=== PATIENT | female | born 1990 | race Two or more races ===

== ENCOUNTER 2018-12-16 09:14 | Day surgery (SDC) | payer OTHER ==
[~2018-12-16] VITALS: Ht 165.1 cm; Wt 81.6 kg
[2018-12-16] VITALS (14 sets, daily range): BP systolic 93–126; BP diastolic 44–90
[~2018-12-16 09:14] MED LIST: ceFAZolin 1gm IVPB IVPB ONE; celeBREX 200mg Cap **SURGERY PATIENTS ONLY ORAL ONE; oxyCONTIN 20mg tab ORAL ONE
[2018-12-16] MEDS ORDERED: TYLENOL EXTRA500 MG ORAL (09:52)
[2018-12-16] MEDS ORDERED: IBUPROFEN600 MG ORAL (09:53)
[2018-12-16] MEDS ORDERED: oxyCONTIN 20mg tab ORAL ONE (13:56)
[2018-12-16] MEDS ORDERED: celeBREX 200mg Cap **SURGERY PATIENTS ONLY ORAL ONE (13:56)
[2018-12-16] MEDS ORDERED: fentaNYL 100 mcg/2 mL IV ONE (14:26)
[2018-12-16] MEDS ORDERED: Midazolam 2mg/2ml Inj ONE (14:26)
[2018-12-16] MEDS ORDERED: TransDerm Scop 1mg/72HR Patch TDERMAL ONE ×2 (14:32→17:00)
[2018-12-16] MEDS ORDERED: Zemuron 50mg/5ml Inj IV ONE (14:33)
[2018-12-16] MEDS ORDERED: Succinylcholine 20mg/ml 10ml vial ONE (14:33)
--- NOTE | 2018-12-16 14:33 | Pre-Procedure Note/Attestation ---
Pre-Procedure Note/Attestation Complete Prior to Procedure Planned Procedure: left Procedure Narrative: humerus orif Indications for Procedure Pre-Operative Diagnosis: left humerus fracture Attestation I attest that I discussed the nature of the procedure; its benefits; risks and complications; and alternatives (and the risks and benefits of such alternatives ), prior to the procedure, with the patient (or the patient's legal retail wireless sales representative). I attest that, if there was a reasonable possibility of needing a blood transfusion, the patient (or the patient's legal retail wireless sales representative) was given the [facility] standardized written summary, pursuant to the Maik Nick Blood Safety Act ([place] Health and Safety Code # 1645, as amended). I attest that I re-evaluated the patient just prior to the surgery and that there has been no change in the patient's H&P, except as documented below: Wang Becker MD Dec 16, 2018 14:33
--- NOTE | 2018-12-16 14:34 | Operative Note - PDOC ---
Operative Note Operative Note Pre-op Diagnosis: left humerus fracture Procedure: see op report Post-op Diagnosis: same as pre-op plus Operative Findings: consistent w/pre-op dx studies Anesthesia: general Specimen: none Complications: none Condition: stable Estimated Blood Loss: none Implant(s) used?: Yes Wang Becker MD Dec 16, 2018 14:34
[2018-12-16] MEDS ORDERED: Ropivacaine 5mg/ml Vial 30ml INJ ONE (14:42)
[2018-12-16] MEDS ORDERED: Bupivacaine w/Epi 0.5% 30ml Vial INJ ONE (14:42)
[2018-12-16] MEDS ORDERED: Bacitracin 50000 Units Vial ONE (14:43)
[2018-12-16] MEDS ORDERED: Tylenol #3 tab (300mg/30mg) ORAL PRN (14:45)
[2018-12-16] MEDS ORDERED: HYDROmorphone 1mg/ml Carpuject SUBQ PRN (14:45)
[2018-12-16] MEDS ORDERED: HYDROcodone/Acetamin 5/325 tab ORAL PRN (14:45)
[2018-12-16] MEDS ORDERED: D5 1/2NS 1,000 ML IV SCH (14:45)
[2018-12-16] MEDS ORDERED: LR 1000ml ONE (15:00)
[2018-12-16] MEDS ORDERED: Sterile Water Irrig 1000ml IRRIG ONE (15:00)
[2018-12-16] MEDS ORDERED: Propofol 200mg/20ml IV ONE (15:00)
[2018-12-16] MEDS ORDERED: Neostigmine 1mg/ml 10ml Inj ONE (15:00)
[2018-12-16] MEDS ORDERED: NS Irrig 1000ml ONE (15:00)
[2018-12-16] MEDS ORDERED: Tranexamic Acid 1,000 MG in NS 65 ML IV ONE (16:00)
--- NOTE | 2018-12-16 16:06 | Anethesia Preoperative Eval ---
Anesthesia Pre-op PMH/ROS General Date of Evaluation: Dec 16, 2018 Time of Evaluation: 14:10 Anesthesiologist: Navin ASA Score: ASA 2 Mallampati Score Class I : Soft palate, uvula, fauces, pillars visible Class II: Soft palate, uvula, fauces visible Class III: Soft palate, base of uvula visible Class IV: Only hard plate visible Mallampati Classification: Class II Surgeon: Eugenio Diagnosis: L distal humerus Fx Surgical Procedure: ORIF of L distal humerus Fx Anesthesia History: none Family History: no anesthesia problems Allergies: Coded Allergies: No Known Allergies (Unverified , 12/16/18) Medications: see eMAR Patient NPO?: Yes Past Medical History Cardiovascular: Denies: HTN, CAD, [place], valve dz, arrhythmia, other Pulmonary: Denies: asthma, COPD, ERUM, other Gastrointestinal/Genitourinary: Reports: GERD - mild; Denies: CRI, ESRD, other Neurologic/Psychiatric: Denies: dementia, CVA, depression/anxiety, TIA, other Endocrine: Denies: DM, hypothyroidism, steroids, other HEENT: Denies: cataract (L), cataract (R), glaucoma, [place] (L), [place] (R), other Hematology/Immune: Reports: anemia - mild; Denies: DVT, bleeding disorder, other Musculoskeletal/Integumentary: Denies: OA, RA, DJD, DDD, edema, other PMH Narrative: as above PSxH Narrative: None Anesthesia Pre-op Phys. Exam Physician Exam Last Vital Signs Date Time Temp Pulse Resp B/P (MAP) Pulse Ox O2 Delivery O2 Flow Rate FiO2 12/16/18 09:55 Room Air 12/16/18 09:54 97.6 76 18 126/90 98 Constitutional: NAD Neurologic: CN 2-12 intact Cardiovascular: RRR, no M/R/G Respiratory: CTA Gastrointestinal: S/NT/ND Airway Exam Mallampati Score: Class II MO: full Neck: Flexible ROM: full Teeth: intact Dentures: no upper, no lower Anesthesia Pre-op A/P Labs see chart Urine Test Test 12/16/18 09:30 Urine HCG, Qualitative Negative (NEGATIVE) Studies Pre-op Studies: EKG - NSR Risk Assessment & Plan Assessment: ASA 2 Plan: GA with ETT prone position PONV prevention, L brachial plexus block for post op pain control Status Change Before Surgery: No Pre-Antibiotics Drug: Ancef 2gr. Given Within 1 Hr of Incision: Yes Time Given: 15:25 Hadley Holden MD Dec 16, 2018 16:06
[2018-12-16] MEDS ORDERED: LR 1000ml 1,000 ML IVLG SCH (16:07)
[2018-12-16] MEDS ORDERED: Morphine Sulfate 10mg/ml Inj ONE (16:09)
[2018-12-16] MEDS ORDERED: DiphenhydrAMINE 50mg/ml Inj IVP PRN (16:15)
[2018-12-16] MEDS ORDERED: Glycopyrrolate 0.2mg/ml 1ml Vial ONE (16:15)
[2018-12-16] MEDS ORDERED: Midazolam 2mg/2ml Inj IVP PRN (16:15)
[2018-12-16] MEDS ORDERED: Acetaminophen (Non formulary) 100 ML IV ONE (16:15)
[2018-12-16] MEDS ORDERED: Ketorolac 30mg Inj IV PRN (16:15)
[2018-12-16] MEDS ORDERED: Metoclopramide 10mg/2ml Inj IVP PRN (16:15)
[2018-12-16] MEDS ORDERED: Hydromorphone 0.5mg/0.5ml inj IVP PRN (16:15)
[2018-12-16] MEDS ORDERED: Metoprolol 5mg/5ml Inj ONE (16:36)
[2018-12-16] MEDS ORDERED: Hydrogen Peroxide 473ml Bottle TOPIC ONE (18:23)
--- NOTE | 2018-12-16 19:13 | Immediate Post-Op Evaluation ---
Immediate Post-Op Evalulation Immediate Post-Op Evalulation Procedure: ORIF of L humerus Fx Date of Evaluation: Dec 16, 2018 Time of Evaluation: 19:12 IV Fluids: 1200 Blood Products: none Estimated Blood Loss: 100 Urinary Output: 150 Blood Pressure Systolic: 96 Blood Pressure Diastolic: 48 Pulse Rate: 92 Respiratory Rate: 22 O2 Sat by Pulse Oximetry: 99 Temperature (Fahrenheit): 97.8 Pain Score (1-10): 2 Nausea: No Vomiting: No Complications none Patient Status: reacts, patent, extubated, none Hydration Status: adequate Hadley Holden MD Dec 16, 2018 19:13
--- NOTE | 2018-12-19 09:27 | Diagnostic Imaging Report ---
INDICATION: Pain, intraoperative TECHNIQUE: Intraoperative imaging Fluoroscopy time: 25.4 seconds Total dose: 0.2422 mGym2 Total number of images: 4 COMPARISON: None FINDINGS: Intraoperative images document surgical repair of spiral distal humeral fracture with lateral plate and screws IMPRESSION: Intraoperative imaging, as described
--- NOTE | 2018-12-19 09:30 | Operative Note - Dictated ---
DATE OF OPERATION: 12/16/2018 PREOPERATIVE DIAGNOSES: 1. Left distal third spiral fracture. 2. Left radial nerve palsy. POSTOPERATIVE DIAGNOSES: 1. Left distal third spiral fracture. 2. Left radial nerve palsy. PROCEDURES: 1. Open reduction and internal fixation of the left distal humeral shaft fracture. 2. Radial nerve neurolysis. SURGEON: Wang Becker M.D. ANESTHESIA: Interscalene with general. INDICATION FOR PROCEDURE: The patient is a pleasant female who sustained the injury to her left arm. She also had a secondary nerve palsy. She was indicative of operative fixation. Risks, limitations, expectations, and complications of the procedure were discussed in detail. All questions were addressed. DESCRIPTION OF PROCEDURE: After informed consent was obtained, the patient was brought to the operating room. The patient was placed under general anesthesia. The patient was then placed in the prone position. We padded all the extremities. The left arm was prepped and draped in a sterile manner. A posterior skin incision was then marked out. The skin was incised. Subcutaneous fascial layers were recreated along the lateral interseptum. The radial nerve was identified. This was then followed posteriorly until we entered the triceps. At this point, the lateral window along the triceps was made. The fracture had a spiral component, but two primarily fragments. Of note, the proximal part of the fracture fragment was engaged inside the radial nerve. The radial nerve was intact in its entirety however. Care was taken to reduce the fracture. Two interfrag screws were placed. The posterior lateral plate was then placed and secured. Once that was done, AP and lateral imaging were obtained. During the lateral rotation, there was displacement of the fracture. Therefore, the distal locking screws were all removed. The fracture was then reduced, and at this point, again screw fixation distally was placed. Additional fixation was placed. There were many holes as possible, and given the rotation, there may be issues with stability. At that point, there was still some gapping on the fracture site. Therefore, DBM bone matrix was then placed into this area. Of note, the radial nerves over the empty holes at 5, 6, and 7 . At this point, the lateral triceps fascia was approximated with #1 Vicryl suture. Subcutaneous tissue was approximated with #1 and 0 Vicryl suture and 2-0 Vicryl suture. Steri-Strips and a sterile dressing were applied. The patient was awoken and taken to recovery with stable vital signs. ESTIMATED BLOOD LOSS: 100 mL. COMPLICATIONS: None. SPECIMENS: None. IMPLANT: Include [place], distal anterior lateral plate. Wang Becker M.D. DR: Rosalind JOB#: [id number] CC: YOVANI
== END 2018-12-16 22:30 | disposition home or self-care (01) ==
LOC: SUR 09:14
DX: S42.402A Unspecified fracture of lower end of left humerus, initial encounter for closed fracture (principal); G56.32 Lesion of radial nerve, left upper limb; X58.XXXA Exposure to other specified factors, initial encounter; Y92.9 Unspecified place or not applicable; K21.9 Gastro-esophageal reflux disease without esophagitis; D64.9 Anemia, unspecified
CPT/HCPCS: 24515; 64708; 73060; 76000; 81025; C1713; J0330; J0690; J1170; J1885; J2250; J2270; J2405; J2704; J2710; J2765; J3010; 94003; 94150

== ENCOUNTER 2020-02-23 08:30 | Day surgery (SDC) | payer OTHER ==
[2020-02-23] VITALS (19 sets, daily range): BP systolic 102–131; BP diastolic 53–82
[~2020-02-23] VITALS: Ht 165.1 cm; Wt 81.6 kg
--- NOTE | 2020-02-23 07:29 | Operative Note - PDOC ---
Operative Note Operative Note Pre-op Diagnosis: left humerus painful hardware Procedure: see opp report Post-op Diagnosis: same as pre-op plus Operative Findings: consistent w/pre-op dx studies Anesthesia: regional Specimen: none Complications: none Condition: stable Estimated Blood Loss: none Implant(s) used?: No Wang Becker MD Feb 23, 2020 07:29
--- NOTE | 2020-02-23 07:29 | Pre-Procedure Note/Attestation ---
Pre-Procedure Note/Attestation Complete Prior to Procedure Planned Procedure: left Procedure Narrative: humerus removal of hardaware Indications for Procedure Pre-Operative Diagnosis: left humerus painful hardware Attestation I attest that I discussed the nature of the procedure; its benefits; risks and complications; and alternatives (and the risks and benefits of such alternatives ), prior to the procedure, with the patient (or the patient's legal inbound customer service representative). I attest that, if there was a reasonable possibility of needing a blood transfusion, the patient (or the patient's legal inbound customer service representative) was given the [facility] standardized written summary, pursuant to the Maik Nick Blood Safety Act ([place] Health and Safety Code # 1645, as amended). I attest that I re-evaluated the patient just prior to the surgery and that there has been no change in the patient's H&P, except as documented below: Wang Becker MD Feb 23, 2020 07:29
[~2020-02-23 08:30] MED LIST changes: +D5 1/2NS 1,000 ML IV SCH; +HYDROcodone/Acetamin 5/325 tab ORAL PRN; +HYDROmorphone 1mg/ml Carpuject SUBQ PRN; +IBUPROFEN600 MG ORAL; +TYLENOL EXTRA500 MG ORAL; +Tylenol #3 tab (300mg/30mg) ORAL PRN
[2020-02-23] MEDS ORDERED: oxyCONTIN 20mg tab ORAL ONE (09:21)
[2020-02-23] MEDS ORDERED: celeBREX 200mg Cap **SURGERY PATIENTS ONLY ORAL ONE (09:21)
[2020-02-23] MEDS ORDERED: Bupivacaine w/Epi 0.5% 30ml Vial INJ ONE (13:30)
[2020-02-23] MEDS ORDERED: Bacitracin 50000 Units Vial ONE (13:31)
[2020-02-23] MEDS ORDERED: NeoSporin Gu Irrig 1ml Amp IRRIG ONE (13:31)
[2020-02-23] MEDS ORDERED: fentaNYL 100 mcg/2 mL IV ONE ×2 (13:39→16:22)
[2020-02-23] MEDS ORDERED: Midazolam 2mg/2ml Inj ONE (13:39)
[2020-02-23] MEDS ORDERED: Bupivacaine 0.25% Inj 30ml INJ ONE (14:40)
[2020-02-23] MEDS ORDERED: Rocuronium Bromide 100mg/10ml Inj IV ONE (14:40)
[2020-02-23] MEDS ORDERED: Sterile Water Irrig 1000ml IRRIG ONE (15:00)
[2020-02-23] MEDS ORDERED: LR 1000ml ONE (15:00)
[2020-02-23] MEDS ORDERED: Tranexamic Acid 1,000 MG in NS 65 ML IV ONE (15:24)
[2020-02-23] MEDS ORDERED: NS Irrig 1000ml IRRIG ONE (15:52)
[2020-02-23] MEDS ORDERED: Ropivacaine 5mg/ml Vial 20ml INJ ONE (16:01)
[2020-02-23] MEDS ORDERED: Metoclopramide 10mg/2ml Inj ONE (16:01)
[2020-02-23] MEDS ORDERED: Lidocaine 1% MPF 10mg/ml 5ml ONE (16:01)
[2020-02-23] MEDS ORDERED: Hydrogen Peroxide 473ml Bottle TOPIC ONE ×2 (16:51→17:00)
--- NOTE | 2020-02-23 17:18 | Immediate Post-Op Evaluation ---
Immediate Post-Op Evalulation Immediate Post-Op Evalulation Procedure: humerus hardware removal Date of Evaluation: Feb 23, 2020 Time of Evaluation: 17:17 IV Fluids: 800 Blood Pressure Systolic: 121 Blood Pressure Diastolic: 67 Pulse Rate: 87 Respiratory Rate: 14 O2 Sat by Pulse Oximetry: 100 Temperature (Fahrenheit): 97.6 Nausea: No Vomiting: No Patient Status: awake, reacts, patent Hydration Status: adequate Drug: ancef Given Within 1 Hr of Incision: Yes Time Given: 15:05 Queenie Pinzon CRNA Feb 23, 2020 17:18
--- NOTE | 2020-02-23 17:25 | Anethesia Preoperative Eval ---
Anesthesia Pre-op PMH/ROS General Date of Evaluation: Feb 23, 2020 Time of Evaluation: 14:50 Anesthesiologist: deejay ASA Score: ASA 2 Mallampati Score Class I : Soft palate, uvula, fauces, pillars visible Class II: Soft palate, uvula, fauces visible Class III: Soft palate, base of uvula visible Class IV: Only hard plate visible Mallampati Classification: Class II Surgeon: too Diagnosis: hardware Surgical Procedure: hardware removal Anesthesia History: none Family History: no anesthesia problems Allergies: Coded Allergies: No Known Allergies (Unverified , 02/20/20) Medications: see eMAR Patient NPO?: Yes NPO Date: Feb 23, 2020 NPO Time: 00:01 Past Medical History Cardiovascular: Denies: HTN, CAD, [place], valve dz, arrhythmia, other Pulmonary: Denies: asthma, COPD, ERUM, other Gastrointestinal/Genitourinary: Denies: GERD, CRI, ESRD, other Neurologic/Psychiatric: Denies: dementia, CVA, depression/anxiety, TIA, other Endocrine: Denies: DM, hypothyroidism, steroids, other HEENT: Denies: cataract (L), cataract (R), glaucoma, [place] (L), [place] (R), other PSxH Narrative: humerus orif Anesthesia Pre-op Phys. Exam Physician Exam Last Vital Signs Date Time Temp Pulse Resp B/P (MAP) Pulse Ox O2 Delivery O2 Flow Rate FiO2 02/23/20 15:29 97.5 71 17 115/75 98 Room Air 02/23/20 14:40 6 Constitutional: NAD Neurologic: CN 2-12 intact Cardiovascular: RRR Respiratory: CTA Gastrointestinal: S/NT/ND Airway Exam Mallampati Classification 2 Mallampati Score: Class II MO: full ROM: full Dentures: no upper, no lower Anesthesia Pre-op A/P Labs Urine Test Test 02/23/20 08:56 Urine HCG, Qualitative Negative (NEGATIVE) Studies Pre-op Studies: EKG - SR Risk Assessment & Plan Plan: General and peripheral Status Change Before Surgery: No Pre-Antibiotics Drug: ancef Given Within 1 Hr of Incision: Yes Time Given: 15:05 Queenie Pinzon CRNA Feb 23, 2020 17:25
[2020-02-23] MEDS ORDERED: fentaNYL 100 mcg/2 mL IV PRN (17:30)
[2020-02-23] MEDS ORDERED: Meperidine 25mg/0.5ml Inj (FOR RIGORS ONLY) IV PRN (17:30)
[2020-02-23] MEDS ORDERED: Hydromorphone 0.5mg/0.5ml inj IVP PRN (17:30)
--- NOTE | 2020-02-23 17:56 | Diagnostic Imaging Report ---
CLINICAL HISTORY: Arm/humerus pain FINDINGS: Fluoroscopy independent procedure performed. 21.2 seconds of fluoroscopy time utilized by the performing physician. Total cumulative dose is 7.69 mGy and 0.39742 mGy.m2. Total of 8 spot images are obtained. IMPRESSION: FLUOROSCOPY GUIDED PROCEDURE. PLEASE SEE PROCEDURAL/OPERATIVE REPORT.
--- NOTE | 2020-02-23 17:56 | Diagnostic Imaging Report ---
CLINICAL HISTORY: Arm/humerus pain FINDINGS: Fluoroscopy independent procedure performed. 21.2 seconds of fluoroscopy time utilized by the performing physician. Total cumulative dose is 7.69 mGy and 0.60115 mGy.m2. Total of 8 spot images are obtained. IMPRESSION: FLUOROSCOPY GUIDED PROCEDURE. PLEASE SEE PROCEDURAL/OPERATIVE REPORT.
--- NOTE | 2020-02-24 04:00 | Operative Note - Dictated ---
DATE OF OPERATION: 02/23/2020 PREOPERATIVE DIAGNOSES: 1. Status post right and left humerus fracture 2. Left radial nerve palsy. 3. Left painful hardware. POSTOPERATIVE DIAGNOSES: 1. Status post right and left humerus fracture ORIF 2. History of Left radial nerve palsy. 3. Left painful hardware. PROCEDURE: 1. Removal of left humerus plate and screws. 2. Complex wound closure measuring 20 cm. 3. Radial nerve decompression. SURGEON: Wang Becker MD. ANESTHESIA: General with a block. INDICATION FOR PROCEDURE: The patient is a pleasant 29-year-old female, who had pretty significant injury to her left arm who underwent open reduction and internal fixation ultimately after the fracture has healed and the radial nerve palsy resolved, she continued to have some pain. [place] that removal of hardware may be able to alleviate some of her discomfort and symptoms. Risks, limitations, expectations, complication of the procedure were discussed in detail. All questions addressed. DESCRIPTION OF THE PROCEDURE: After informed consent was obtained, the patient was brought to the operating room. The patient was placed under interscalene general anesthesia. Patient was then carefully placed in the lateral position, padded all the extremities. Time-out was performed. Ancef was administered. At this point, the previous keloid, which had widened and was sensitive was coaxed out. Blunt dissection to maintain tissue subcutaneous flap fascia was performed. Given that the previous approach versus the triceps splitting, the distal triceps was identified and split down to the distal third of the humerus. At this point, the screws distally were removed. Radial nerve was identified where it was placed at the time of the original surgery. Care was taken not to violate this interval. Once the distal screws were removed, the 4 proximal screws were identified using fluoroscopy. The screws were then removed. The plate was then removed. This wound was copiously irrigated. The skin was approximated using #1 Vicryl suture, 0-Vicryl suture, 2-0 Vicryl suture, 4-0 Prolene, 4-0 Monocryl and Dermabond. Compression dressing was applied. The patient was awoken and taken to recovery room with stable signs. ESTIMATED BLOOD LOSS: 50 mL. COMPLICATIONS: None. SPECIMENS: None. IMPLANTS: None. EXPLANTS: Include humerus plate with multiple screws. Wang Becker M.D. DR: CHAD JOB#: [id number] CC: YOVANI
[2020-02-24 15:55] VITALS: BP 125/76
--- NOTE | 2020-02-24 15:55 | 48 Hour Post Anesthesia Eval ---
Post Anesthesia Evaluation Procedure: humerus hardware removal Date of Evaluation: Feb 24, 2020 Time of Evaluation: 15:55 Blood Pressure Systolic: 125 0: 76 Pulse Rate: 70 Respiratory Rate: 14 O2 Sat by Pulse Oximetry: 98 Airway: patent Nausea: No Vomiting: No Hydration Status: adequate Cardiopulmonary Status: stable Mental Status/LOC: patient returned to baseline Post-Anesthesia Complications: none Follow-up care needed: N/A Queenie Pinzon CRNA Feb 24, 2020 15:55
== END 2020-02-23 19:25 | disposition home or self-care (01) ==
LOC: SUR 08:30
DX: G56.32 Lesion of radial nerve, left upper limb (principal); T85.848A Pain due to other internal prosthetic devices, implants and grafts, initial encounter; L91.0 Hypertrophic scar; X58.XXXA Exposure to other specified factors, initial encounter; Y92.9 Unspecified place or not applicable
CPT/HCPCS: 13121; 13122; 20680; 73060; 76000; 81025; 94003; J0690; J1170; J2250; J2405; J2704; J2765; J2795; J3010; J3490; J7120; 94150